=== PATIENT | male | born 1980 | race Caucasian/White ===

== ENCOUNTER 2016-08-07 12:09 | Emergency (ER) | payer OTHER ==
[~2016-08-07] VITALS: Ht 182.9 cm; Wt 74.1 kg
[~2016-08-07 12:09] MED LIST: ADVIL,NUPRIN,M200 MG PO; ATARAX,VISTARIL25 MG PO; CLONAZEPAM1 MG PO; ENDOCET 5-3251 EACH; HYDROCODON-ACE1 EAC7; HYDROCODON-ACE1 EACH; LEXAPRO10 MG PO; NOHOMEMEDS; OXYCODONE-APAP1 EACH
[2016-08-07] MEDS ORDERED: PERCOCET 5/31 TABLET PO (14:26)
[2016-08-07 14:52] VITALS: BP 135/81
== END 2016-08-07 14:52 | disposition home or self-care (01) ==
LOC: EME 12:09
DX: S20.219A Contusion of unspecified front wall of thorax, initial encounter (principal); S22.49XD Multiple fractures of ribs, unspecified side, subsequent encounter for fracture with routine healing; S42.001D Fracture of unspecified part of right clavicle, subsequent encounter for fracture with routine healing; V00-Y99 External causes of morbidity; Z76.0 Encounter for issue of repeat prescription
CPT/HCPCS: 71101; 73000; 99281; 99283